=== PATIENT | female | born 1995 | race Caucasian/White ===

== ENCOUNTER 2016-11-22 11:10 | Emergency (ER) | payer SELFPAY ==
--- NOTE | 2016-11-22 12:29 | PDOC ---
General Adult HPI - General Chief Complaint: General Medical Stated Complaint: DRANK [place] WATER/ SICK Date Seen by Provider: 11/22/16 Time Seen by Provider: 12:00 Source: POSITIVE: Patient, Old records Exam Limitations: POSITIVE: No limitations Nurse's Notes Reviewed & Considered: Yes - History of Present Illness Initial Comment: The patient is a 21-year-old female. She states that somewhat less than 1-1/2 days ago she was on an outing [place] the [place] outside of [place]. She and her 2 friends drank some [place] water. One of her friends developed nausea, vomiting, diarrhea and abdominal bloating and cramping, for which she was seen in the emergency room last night. Patient was treated presumptively for Giardia with tinidazole. The patient states that she has developed symptoms similar to what her friend had. She states that yesterday she had nausea with 3 episodes of vomiting. She also complains of periumbilical cramping and "bloating". She thinks she might of running a fever yesterday. No diarrhea. No melena, hematochezia, hematemesis, dysuria or hematuria. She is on control pills. No history of previous abdominal surgery. Have you received a tetanus shot in the past 10 years?: Yes Body Location Affected: REPORTS: Abdomen Timing: REPORTS: Constant Duration: <24 hours Severity: Moderate Quality: REPORTS: Cramping, Other (Bloating) Context: REPORTS: Other (Recently drank contaminated water from a stream) Modifying Factors: improves with: Vomiting Similar Symptoms Previously: No Recent Care Received: REPORTS: Denies Any Prior Injuries Related to Current Complaint?: No - Patient Home Medications Home Medications: Home Medications Albuterol Sulfate [Proair Hfa] 2 puff INH Q4-6H #1 inh 10/10/16 Pantoprazole Sodium [Protonix] 40 mg PO QD #30 tab 10/10/16 Albuterol Sulfate [Proair Hfa] 2 puff INH Q4-6H #1 inh 10/22/16 Ondansetron Odt [Zofran ODT] 4 mg PO Q4H PRN #10 tab.rapdis 11/22/16 Tinidazole 500 mg PO ONCE #4 tablet 11/22/16 - Patient Allergies Allergies/Adverse Reactions: Allergies Allergy/AdvReac Type Severity Reaction Status Date / Time No Known Allergies Allergy Verified 05/17/16 17:50 Past Medical History - heen HEENT History: Denies History Cardiovascular History: Denies History Respiratory History: Asthma Gastrointestinal History: GERD Genitourinary History: Denies History Endocrine History: Denies History Musculoskeletal History: Denies History Prosthesis or Implant: No Neurological History: Denies History Blood Disorders: Denies History Psychiatric History: Denies History History of Sexually Transmitted Diseases: No Cancer History: Denies History History of MDRO: No History of Other Communicable Diseases: No Alcohol Use: Rarely Substance Use Type: None Previous Surgical History: Yes Type / Date of Surgery: RT FOREARM X 4/ PINNED Anesthesia Reactions: No Malignant Hyperthermia: No Significant Family History: Heart disease, Cancer, Hypertension, Seizures, Other (please comment) Additional Family History: family history of cancer Past Medical History Reviewed: Reviewed - No Changes ROS - Limitations ROS Limitations: No Limitations Constitution: REPORTS: Denies Symptoms Cardiovascular: REPORTS: Denies Cardiac Symptoms Respiratory: REPORTS: Denies Resp Symptoms Neurological: REPORTS: Denies Neuro Symptoms Gastrointestinal: REPORTS: Abdominal Pain (Cramping), Nausea, Vomitting Endocrine: REPORTS: Denies Symptoms Musculoskeletal: REPORTS: Denies MS Symptoms Genitourinary: REPORTS: Denies Symptoms Eyes: REPORTS: Denies Symptoms ENT: REPORTS: Denies Symptoms Skin: REPORTS: Denies Skin Symptoms Lympathic: REPORTS: Denies Lympathic Symptoms Immunologic: POSITIVE: Denies Symptoms Psychiatric: POSITIVE: Denies Psych Symptoms General Adult Exam - General Appearance General Appearance: POSITIVE: Alert, Cooperative, No Acute Distress, No Evidence of Trauma - HEENT HEENT: POSITIVE: Head Inspection Nml, Eyes Inspection Nml, Ears Inspection Nml, Nose Inspection Nml, Oral/Dental Inspect. Nml, Pharynx Inspect. Nml, PERRL, EOMI - Pupils Pupil Size: 3 mm: Bilateral (PERRLA) - Neck Neck: POSITIVE: Normal Inspection, Thyroid Normal - Respiratory Respiratory: POSITIVE: No Respiratory Distress, Breath Sounds Normal, Chest Non- Tender - Cardiovascular Cardiovascular: POSITIVE: Regular Rate & Rhythm, No Murmur, No Gallop, PMI Normal Peripheral Pulses: Radial (R): 2+, Radial (L): 2+ - Abdomen Abdomen: Soft: (All Quadrants), Normal Bowel Sounds: (All Quadrants), No Splenomegaly: (All Quadrants), No Hepatomegaly: (All Quadrants), No Guarding: ( All Quadrants), No Rebound: (All Quadrants), No Palpable Pulse: (All Quadrants) , No Palpabale Mass: (All Quadrants), No Distention: (All Quadrants), No Rigidity: (All Quadrants), Tenderness Noted: (LUQ), (RLQ) (mainly paraumbilically) - Back Back: POSITIVE: Normal Inspection - Skin Skin: POSITIVE: Normal Color, Warm, Dry, No Rash - Extremities Extremity: Non-Tender: (All Extremities), Normal ROM: (All Extremities), Normal Inspection: (All Extremities) - Neurological / Psychological Neurological: POSITIVE: Oriented X3, recovery specialist Normal As Tested, Motor Normal, Sensation Normal, 5, 6 Images - Complete Complete: 1 - Area of described abdominal cramping; abdomen nontender on palpation. General Adult Progress - Patient's Progress Pain Medication Addressed: POSITIVE: Not Applicable School/Work Release Addressed: POSITIVE: Not Applicable Re-Examine Time: 12:20 Status: POSITIVE: Unchanged Antibiotics Given: Yes (tinidazole, 500 mg, 4 tablets to be taken simultaneously ) - Consult Counseled: POSITIVE: Patient, RE: DX, RE: Need for F/U Patient Care Time - Estimated PCT Patient Care Time (In Minutes): 20 Vital Signs - Recent Vital Signs Vital Signs: Blood pressure 105/79, heart rate 80, respiratory rate 16, temperature 97.4F, oxygen saturation on room air 97% - VS Reviewed Vital Signs Reviewed: Yes Discharge Clinical Impression: Giardia Discharge Disposition: Discharged to Home Condition: Good Prescriptions / Orders: Tinidazole 500 mg PO ONCE #4 tablet Ondansetron Odt [Zofran ODT] 4 mg PO Q4H PRN #10 tab.rapdis PRN Reason: Nausea Patient Instructions Given at Discharge: Giardiasis (ED) Additional Instructions: You're being presumptively treated for giardiasis, which is an intestinal infection most often contracted by drinking contaminated [place] water. Take four tinidazole tablets, all at the same time, with food. Zofran, one dissolved on the tongue every 4 hours as necessary for nausea. Follow-up with your primary care provider. Return here anytime if condition worsens in the future. In the future please avoid drinking contaminated water. Follow Up With: NONE,NONE [Primary Care Provider] - (Instructions as above. Follow-up with your primary care provider. Return here as necessary.)
[2016-11-22 13:15] VITALS: RESP 16; TEMP 97.4
== END 2016-11-22 12:29 | disposition home or self-care (01) ==
LOC: ER 11:10
DX: A07.1 Giardiasis [lambliasis] (principal); R14.0 Abdominal distension (gaseous); R10.33 Periumbilical pain; R11.2 Nausea with vomiting, unspecified
CPT/HCPCS: 99282